=== PATIENT | male | born 1990 | race Caucasian/White ===

== ENCOUNTER 2016-12-14 09:49 | Emergency (ER) | payer OTHER ==
[~2016-12-14 09:49] MED LIST: ALBUTEROL17 GM INH; FORADIL12 MCG NEB
== END 2016-12-14 10:40 | disposition home or self-care (01) ==
LOC: CED 09:49
DX: T25.421A Corrosion of unspecified degree of right foot, initial encounter (principal); T32.0 Corrosions involving less than 10% of body surface; X58.XXXA Exposure to other specified factors, initial encounter
CPT/HCPCS: 99283